=== PATIENT | female | born 1955 | race American Indian/Alaskan Native ===

== ENCOUNTER 2017-03-24 19:47 | Emergency (ER) | payer MEDICARE ==
[2017-03-24] MEDS ORDERED: TORADOL IM ONE (21:11)
[2017-03-24] MEDS ORDERED: BOOSTRIX IM ONE (21:11)
--- NOTE | 2017-03-24 21:30 | Emergency Department Report ---
HPI - General Chief Complaint: Extremity Injury, Lower Time Seen by Provider: 03/24/17 20:49 - HPI HPI: Patient is a 62-year-old female presents to ED complaining of right ankle pain 1 day. Patient states earlier tonight she was coming out of her door when the spring door hit the inside of her ankle. Patient states that throbbing type sensation in her ankle. She mentions she is unsure of her tetanus booster is up -to-date. She denies any medical history. She denies fevers/chills/vomiting/chest pain/shortness of breath/calf pain or any other issues. ED Past Medical Hx - Past Medical History Previous Medical History?: No Hx HIV: No - Surgical History Past Surgical History?: Yes Additional Surgical History: fusion to 4,5,6 vertebrae, - Social History Smoking Status: Never Smoker Substance Use Type: None - Medications Home Medications: Home Medications Medication Instructions Recorded Confirmed Last Taken Type Cetirizine HCl [ZyrTEC] 1 tab PO DAILY 09/12/15 09/23/15 09/22/15 09:00 History Cholecalciferol (Vitamin D3) 1 tab PO DAILY 09/12/15 09/23/15 09/16/15 09:00 History [Vitamin D3] Hair, Skin & Nails Caplet 1 tab PO DAILY 09/12/15 09/23/15 09/12/15 09:00 History Cephalexin [Keflex] 500 mg PO Q12HR #10 cap 03/24/17 Unknown Rx Ibuprofen [Motrin] 800 mg PO Q8HR PRN #30 tablet 03/24/17 Unknown Rx Neomycin David/Bacitrac Zn/Poly 1 applic TP TID #1 tube 03/24/17 Unknown Rx [Triple Antibiotic Ointment] ED Review of Systems ROS: Stated complaint: RT ANKLE LAC Other details as noted in HPI Constitutional: denies: chills, fever Eyes: denies: eye pain, eye discharge, vision change ENT: denies: ear pain, throat pain Respiratory: denies: cough, shortness of breath, wheezing Cardiovascular: denies: chest pain, palpitations Endocrine: no symptoms reported Gastrointestinal: denies: abdominal pain, nausea, diarrhea Genitourinary: denies: urgency, dysuria, discharge Musculoskeletal: denies: back pain, joint swelling, arthralgia Skin: denies: rash, lesions Neurological: denies: headache, weakness, paresthesias Psychiatric: denies: anxiety, depression Hematological/Lymphatic: denies: easy bleeding, easy bruising Physical Exam - Physical Exam Vital Signs: Vital Signs 03/24/17 20:17 Temperature 98.6 F Pulse Rate 77 Respiratory 20 Rate Blood Pressure 150/93 O2 Sat by Pulse 98 Oximetry Physical Exam: GENERAL: Alert and oriented x3, no apparent distress, Normal Gait, atraumatic. HEAD: Head is normocephalic and a-traumatic. EYES: Extra ocular muscles are intact. Pupils are equal, round, and reactive to light and accommodation. NECK: Supple. Non edematous, No carotid bruits. No lymphadenopathy or thyromegaly. LUNGS: Symetrical with respiration, No wheezing, no rales or crackles, CTAB. HEART: S1, S2 present, regular rate and rhythm without murmur, no rubs, no gallops. EXTREMITIES/MUSCULOSKELETAL: No cyanosis, clubbing, rash, lesions or edema. Full ROM bilaterally. pedal Pulses 2+ bilaterally. LE and UE 5+ strength bilaterally, mildly tenderness to palpation of the right ankle, none edema, two 0.5 cm superficial laceration on the medial aspect of the ankle. No active bleeding. Full range of motion of the right ankle. NEUROLOGIC: The patient is cooperative with no focal neurologic deficits. Cranial nerves II through XII are grossly intact. Normal speech. SKIN: Warm and dry, No lesions, No ulceration or induration present. ED Course Vital Signs 03/24/17 20:17 Temperature 98.6 F Pulse Rate 77 Respiratory 20 Rate Blood Pressure 150/93 O2 Sat by Pulse 98 Oximetry ED Medical Decision Making - Radiology Data Radiology results: report reviewed, image reviewed FINAL REPORT PROCEDURE: Right ankle series TECHNIQUE: Right ankle radiographs, AP, lateral, and oblique views. CPT 60781 HISTORY: RIGHT ANKLE PAIN COMPARISON: No prior studies are available for comparison. FINDINGS: No fracture or dislocation is identified. A small oval calcification projects inferior to the tip of the medial malleolus which appears well corticated suggesting an accessory ossicle. Ankle mortise and talar dome are intact. Bone density appears normal. No calcaneal spurs are seen. IMPRESSION: Negative exam.. Transcribed By: DFSelina Dictated By: NYLA PATEL MD Electronically Authenticated By: NYLA PATEL MD Signed Date/Time: 03/24/17 2155 - Medical Decision Making 62-year-old female presents with right ankle injury ED course: X-ray ordered. X-ray of the right ankle shows C above Patient received Toradol 60 IM for pain. Lacerations cleaned and dressed with triple antibiotic sterilely draped. Discussed acute wound care instructions the patient Discussed the patient to continue to apply antibiotic ointment. Vital signs are normal patient is in no acute distress. Patient has full range of motion man on the right ankle and foot Critical care attestation.: If time is entered above; I have spent that time in minutes in the direct care of this critically ill patient, excluding procedure time. ED Disposition Clinical Impression: Ankle abrasion without infection Qualifiers: Encounter type: initial encounter Laterality: right Qualified Code(s): S90.511A - Abrasion, right ankle, initial encounter Right ankle injury Qualifiers: Encounter type: initial encounter Qualified Code(s): S99.911A - Unspecified injury of right ankle, initial encounter Disposition: DISCHARGED TO HOME OR SELFCARE Is pt being admited?: No Does the pt Need Aspirin: No Condition: Stable Instructions: Acute Wound Care (ED), Arthralgia (ED), Ankle Exercises (GEN) Additional Instructions: Follow-up with primary care physician as referred for wound check in 3-5 days Taking medication as prescribed Final instructions as given change dressing every day, apply triple antibiotic Prescriptions: Cephalexin [Keflex] 500 mg PO Q12HR #10 cap Ibuprofen [Motrin] 800 mg PO Q8HR PRN #30 tablet PRN Reason: Pain Neomycin David/Bacitrac Zn/Poly [Triple Antibiotic Ointment] 1 applic TP TID #1 tube Referrals: PRIMARY CARE, [Primary Care Provider] - 3-5 Days [facility] [Outside] - 3-5 Days [facility] [Outside] - 3-5 Days [facility] [Outside] - 3-5 Days Forms: Work/School Release Form Time of Disposition: 22:06
[2017-03-24] MEDS ORDERED: TRIPLE ANTIBIOTIC TP ONE (21:43)
--- NOTE | 2017-03-24 21:59 | XRay Report ---
FINAL REPORT PROCEDURE: Right ankle series TECHNIQUE: Right ankle radiographs, AP, lateral, and oblique views. CPT 76616 HISTORY: RIGHT ANKLE PAIN COMPARISON: No prior studies are available for comparison. FINDINGS: No fracture or dislocation is identified. A small oval calcification projects inferior to the tip of the medial malleolus which appears well corticated suggesting an accessory ossicle. Ankle mortise and talar dome are intact. Bone density appears normal. No calcaneal spurs are seen. IMPRESSION: Negative exam..
[2017-03-24 22:21] VITALS: BP 142/82
== END 2017-03-24 22:20 | disposition home or self-care (01) ==
LOC: ED 19:47
DX: S90.511A Abrasion, right ankle, initial encounter (principal); X58.XXXA Exposure to other specified factors, initial encounter; Y93.89 Activity, other specified; Y99.8 Other external cause status; Y92.89 Other specified places as the place of occurrence of the external cause
CPT/HCPCS: 73610; 90471; 90715; 96372; 99283; J1885; A6250

== ENCOUNTER 2017-04-22 17:53 | Emergency (ER) | payer MEDICARE ==
[2017-04-22 18:01] VITALS: BP 150/92
[2017-04-22] MEDS ORDERED: DECADRON IM ONE (19:29)
[2017-04-22] MEDS ORDERED: TORADOL IM ONE (19:29)
--- NOTE | 2017-04-22 20:23 | XRay Report ---
FINAL REPORT EXAM: XR HIP 2-3V LT HISTORY: LEFT HIP pain TECHNIQUE: AP pelvis PRIORS: None. FINDINGS: No acute fractures are identified. The pubic symphysis and SI joints are intact. No evidence of hip fracture or dislocation. No bony lesions are identified. Calcification in the mid to upper pelvis likely reflects a calcified fibroid. IMPRESSION: no acute abnormalities seen
[2017-04-22] MEDS ORDERED: NORCO 5/325 PO ONE (20:40)
--- NOTE | 2017-04-22 20:45 | Emergency Department Report ---
Entered by DAIN STROUD, acting as scribe for JOHNSON SCHNEIDER PA. ED Lower Extremity HPI - General Chief Complaint: Extremity Problem,Nontraumatic Stated Complaint: LT HIP PAIN Time Seen by Provider: 04/22/17 19:23 Source: patient, family Mode of arrival: Ambulatory Limitations: No Limitations - History of Present Illness Initial Comments: 62 y/o female presents to the ED c/o left hip pain that began 2 weeks ago. Associated symptoms include hip pain but she denies fever and chills. Pain is described as 10/10 on a severity scale. Pain is achy. Denies injury. No alleviating factors despite taking Doans, Flexeril, and ibuprofen. Aggravated with movement. Patient is ambulatory. She denies any traumatic injury or any history of arthritis. NKDA. GREGORIO Complaint: hip injury Onset/Timin -: week(s) Injury: Hip: Left (pain worse to walk-in) Type of Injury: unknown Place: home Severity: severe Severity scale (0 -10): 10 Improves With: immobilization Worsens With: weight bearing, movement Context: walking Associated Symptoms: ambulatory Treatments Prior to Arrival: other (Flexeril, NOADS) - Related Data Home Medications Medication Instructions Recorded Confirmed Last Taken Cetirizine HCl [ZyrTEC] 1 tab PO DAILY 09/12/15 09/23/15 09/22/15 09:00 Cholecalciferol (Vitamin D3) 1 tab PO DAILY 09/12/15 09/23/15 09/16/15 09:00 [Vitamin D3] Hair, Skin & Nails Caplet 1 tab PO DAILY 09/12/15 09/23/15 09/12/15 09:00 Previous Rx's Medication Instructions Recorded Last Taken Type Cephalexin [Keflex] 500 mg PO Q12HR #10 cap 03/24/17 Unknown Rx Ibuprofen [Motrin] 800 mg PO Q8HR PRN #30 tablet 03/24/17 Unknown Rx Neomycin David/Bacitrac Zn/Poly 1 applic TP TID #1 tube 03/24/17 Unknown Rx [Triple Antibiotic Ointment] traMADol [Ultram] 50 mg PO Q6HR PRN #20 tablet 04/22/17 Unknown Rx Allergies Allergy/AdvReac Type Severity Reaction Status Date / Time No Known Allergies Allergy Verified 11/20/15 11:12 ED Review of Systems Comment: All other systems reviewed and negative Constitutional: denies: chills, fever Respiratory: no symptoms reported Cardiovascular: denies: chest pain, palpitations, edema, syncope Gastrointestinal: denies: nausea, vomiting Musculoskeletal: arthralgia. denies: back pain, joint swelling, myalgia Skin: denies: rash Neurological: denies: headache, weakness, numbness, paresthesias, confusion, abnormal gait, vertigo ED Past Medical Hx - Past Medical History Previous Medical History?: Yes Hx HIV: No Additional medical history: Chronic back pain with history of fusion - Surgical History Past Surgical History?: Yes Additional Surgical History: fusion to 4,5,6 vertebrae, bunion, TL, nose - Social History Smoking Status: Never Smoker Substance Use Type: None - Medications Home Medications: Home Medications Medication Instructions Recorded Confirmed Last Taken Type Cetirizine HCl [ZyrTEC] 1 tab PO DAILY 09/12/15 09/23/15 09/22/15 09:00 History Cholecalciferol (Vitamin D3) 1 tab PO DAILY 09/12/15 09/23/15 09/16/15 09:00 History [Vitamin D3] Hair, Skin & Nails Caplet 1 tab PO DAILY 09/12/15 09/23/15 09/12/15 09:00 History Cephalexin [Keflex] 500 mg PO Q12HR #10 cap 03/24/17 Unknown Rx Ibuprofen [Motrin] 800 mg PO Q8HR PRN #30 tablet 03/24/17 Unknown Rx Neomycin David/Bacitrac Zn/Poly 1 applic TP TID #1 tube 03/24/17 Unknown Rx [Triple Antibiotic Ointment] traMADol [Ultram] 50 mg PO Q6HR PRN #20 tablet 04/22/17 Unknown Rx ED Physical Exam - General Limitations: No Limitations General appearance: alert, in no apparent distress - Head Head exam: Present: atraumatic, normocephalic, normal inspection - Eye Eye exam: Present: normal appearance, PERRL, EOMI. Absent: nystagmus, periorbital swelling, periorbital tenderness Pupils: Present: normal accommodation - ENT ENT exam: Present: normal exam, mucous membranes dry, mucous membranes moist, TM 's normal bilaterally, normal external ear exam - Neck Neck exam: Present: normal inspection, full ROM. Absent: tenderness, lymphadenopathy - Respiratory Respiratory exam: Present: normal lung sounds bilaterally. Absent: respiratory distress, chest wall tenderness - Cardiovascular Cardiovascular Exam: Present: regular rate, normal rhythm, normal heart sounds - GI/Abdominal GI/Abdominal exam: Present: soft, normal bowel sounds. Absent: distended, tenderness, guarding, rebound - Extremities Exam Extremities exam: Present: normal inspection, full ROM, normal capillary refill , other (full abduction and adduction with pain). Absent: tenderness, pedal edema, joint swelling, calf tenderness - Expanded Lower Extremity Exam Left Hip exam: Present: normal inspection, full ROM, pelvic stability. Absent: tenderness, swelling, abrasion, laceration, ecchymosis, deformity, crepidus, dislocation, erythema, external rotation, internal rotation, shortening Upper Leg exam: Present: normal inspection, full ROM. Absent: tenderness, swelling, abrasion, laceration, ecchymosis, deformity, crepidus, dislocation, erythema Knee exam: Present: normal inspection, full ROM, full knee extension. Absent: tenderness, swelling, abrasion, laceration, ecchymosis, deformity, crepidus, dislocation, erythema, effusion, pain w/ pronation/supination, posterior draw sign, pain/laxity with valgus, pain/laxity with varus Lower Leg exam: Present: normal inspection, full ROM. Absent: tenderness, swelling, abrasion, laceration, ecchymosis, deformity, crepidus, dislocation, erythema, palpable cord, Yeni's sign Ankle exam: Present: normal inspection, full ROM. Absent: tenderness, swelling , abrasion, laceration, ecchymosis, deformity, crepidus, dislocation, erythema, anterior draw sign Foot/Toe exam: Present: normal inspection, full ROM. Absent: tenderness, swelling, abrasion, laceration, ecchymosis, deformity, crepidus, dislocation, erythema, amputation, puncture wound, foreign body, calcaneal tenderness, tenderness at base of 5th metatarsal, nail avulsion, subungual hematoma Neuro vascular tendon exam: Present: no vascular compromise, pulse deficit. Absent: abnormal cap refill, motor deficit, sensory deficit, tendon deficit, extremity cold to touch, pallor, abnormal 2-point discrimination, decreased fine /light touch, foot drop, peroneal nerve deficit, significant pain with passive ROM of distal joint Gait: Positive: observed and limited by pain - Back Exam Back exam: Present: normal inspection, full ROM. Absent: tenderness, CVA tenderness (R), CVA tenderness (L), muscle spasm, paraspinal tenderness, vertebral tenderness, rash noted - Neurological Exam Neurological exam: Present: alert, oriented X3, normal gait, reflexes normal. Absent: motor sensory deficit - Psychiatric Psychiatric exam: Present: normal affect, normal mood - Skin Skin exam: Present: warm, dry, intact, normal color. Absent: rash ED Course Vital Signs 04/22/17 17:56 Temperature 97.9 F Pulse Rate 92 H Blood Pressure 150/92 O2 Sat by Pulse 100 Oximetry Vital Signs 04/22/17 04/22/17 17:56 20:12 Temperature 97.9 F Pulse Rate 92 H Respiratory 18 Rate Blood Pressure 150/92 O2 Sat by Pulse 100 Oximetry - Reevaluation(s) Reevaluation #1: 04/22/17 20:13 Patient received Decadron 10 mg IM and Toradol 60 mg IM and emergency room for pain. Reevaluation #2: 04/22/17 20:39 Patient pain was not completely relieved with Toradol and Decadron so she was given [place] 5/325 2 tablets prior to discharge. ED Lower Extremity MDM - Radiology Data Radiology results: report reviewed X-ray of left hip revealed no acute bony abnormality. No joint effusion noted. No soft tissue swelling noted - Medical Decision Making ED course: She did complain and off left hip pain without any injury that started 2 weeks ago. X-ray of her left hip revealed no bony abnormalities or joint effusion, soft tissue swelling and this was relayed to patient. I discussed with her that she will need to follow-up with orthopedic doctor for possible MRI of her hip. She was given Decadron 10 mg IM, Toradol 60 mg IM which did not relieve her pain completely therefore she was given [place] 5/325 2 tablets in emergency room prior to discharge. I explained diagnosis and treatment plan the patient and she voiced understanding. Patient discharged home with her family in stable condition with prescription for Ultram. ED Disposition Clinical Impression: Arthralgia of left hip Disposition: - TO HOME OR SELFCARE Is pt being admited?: No Does the pt Need Aspirin: No Condition: Stable Instructions: Arthralgia (ED) Additional Instructions: Please rest for 72 hours F/U with orthopedic doctor as instructed Take Ultram as prescribed for pain. Prescriptions: traMADol [Ultram] 50 mg PO Q6HR PRN #20 tablet PRN Reason: Pain Referrals: EMANI FELIX MD [Staff Physician] - 04/27/17 Forms: Work/School Release Form(ED), Accompanied Note This documentation as recorded by the [employer] cornell ELIZABETH,accurately reflects the service I personally performed and the decisions made by ,JOHNSON SCHNEIDER PA.
== END 2017-04-22 20:50 | disposition home or self-care (01) ==
LOC: ED 17:53
DX: M25.552 Pain in left hip (principal)
CPT/HCPCS: 73502; 96372; 99283; J1100; J1885

== ENCOUNTER 2017-08-12 01:45 | Emergency (ER) | payer MEDICARE ==
[2017-08-12 03:48] LABS: Basophils % (Auto) 0.3 % (0.0-1.8); Eosinophils % (Auto) 1.4 % (0.0-4.3); Hematocrit 36.5 % (30.3-42.9); Hemoglobin 12.4 gm/dl (10.1-14.3); Mean Corpuscular HGB Conc 34 % (30-34); Mean Corpuscular Hemoglobin 31 pg (28-32); Mean Corpuscular Volume 92 fl (79-97); Platelet Count 202 K/mm3 (140-440); Red Blood Count 3.96 M/mm3 (3.65-5.03); Red Cell Distribution Width 14.2 % (13.2-15.2); White Blood Count 7.2 K/mm3 (4.5-11.0)
[2017-08-12 04:11] LABS: Alanine Aminotransferase 45 units/L (7-56); Albumin 4.2 g/dL (3.9-5); Albumin/Globulin Ratio 1.6 %; Alkaline Phosphatase 106 units/L (35-129); Anion Gap 18 mmol/L; BUN/Creatinine Ratio 17; Blood Urea Nitrogen 15 mg/dL (7-17); Calcium 9.7 mg/dL (8.4-10.2); Carbon Dioxide 26 mmol/L (22-30); Chloride 102.8 mmol/L (98-107); Glucose 98 mg/dL (65-100); Lipase 18 units/L (13-60); Potassium 4.3 mmol/L (3.6-5.0); Sodium 142 mmol/L (137-145); Total Protein 6.8 g/dL (6.3-8.2)
[2017-08-12 06:20] VITALS: BP 143/98
[2017-08-12 07:19] LABS: Bacteria,Urine 1+ /HPF (Negative); Bilirubin,Urine NEG (Negative); Blood,Urine NEG (Negative); Ketones,Urine NEG (Negative); Leukocyte Esterase,Urine TR (Negative); Mucus,Urine FEW /HPF; Nitrite,Urine NEG (Negative); Protein,Urine <15 mg/dL mg/dL (Negative); Urobilinogen,Urine < 2.0 mg/dL (<2.0)
[2017-08-12 08:08] LABS: RBC,Urine < 1.0 /HPF (0.0-6.0)
== END 2017-08-12 06:15 | disposition left against medical advice (07) ==
LOC: ED 01:45
DX: R10.9 Unspecified abdominal pain (principal); Z53.21 Procedure and treatment not carried out due to patient leaving prior to being seen by health care provider
CPT/HCPCS: 36415; 80053; 81001; 83690; 85025

== ENCOUNTER 2019-05-04 10:49 | Emergency (ER) | payer MEDICARE ==
[2019-05-04 10:59] VITALS: BP 149/79
[2019-05-04] MEDS ORDERED: IBUPROFEN PO ONE (13:13)
--- NOTE | 2019-05-04 13:41 | Emergency Department Report ---
ED General Adult HPI - General Chief complaint: Extremity Injury, Upper Stated complaint: COLLAR BONE/R WRIST PAIN Time Seen by Provider: 05/04/19 12:56 Source: patient Mode of arrival: Ambulatory Limitations: No Limitations - History of Present Illness Initial comments: 64-year-old female comes in for not her right collarbone and right wrist does not feel right. Collarbone not has been there for one month right wrist knot has been there for 2 months. Patient's been taking Aleve. Patient reports she had discussed it with the primary care provider and was referred to orthopedist for her ganglionic cyst but she has not followed up secondary to her pain. Patient reports an knot on her collarbone is sore denies any trauma. Onset/Timin -: month(s) Location: upper extremity (right wrist) Radiation: non-radiation Severity scale (0 -10): 7 Quality: aching Consistency: constant Improves with: none Worsens with: none Associated Symptoms: denies other symptoms Treatments Prior to Arrival: NSAID (aleve) - Related Data Home Medications Medication Instructions Recorded Confirmed Last Taken Cetirizine HCl [ZyrTEC 10mg cap] 1 tab PO DAILY 09/12/15 08/15/17 09/22/15 09:00 Hair, Skin & Nails Caplet 1 tab PO DAILY 09/12/15 08/15/17 09/12/15 09:00 Aspirin/Acetaminophen/Caffeine 1 each PO PRN PRN 08/15/17 08/15/17 Unknown [Barb's Ex-Str Powder Packet] Previous Rx's Medication Instructions Recorded Last Taken Type Ibuprofen [Motrin 800 MG tab] 800 mg PO Q8HR PRN #30 tablet 03/24/17 Unknown Rx levoFLOXacin [Levaquin TAB] 500 mg PO QDAY #10 tablet 08/20/17 Unknown Rx oxyCODONE /ACETAMINOPHEN [Percocet 1 tab PO Q6H PRN #10 tablet 08/20/17 Unknown Rx 5/325 mg] metroNIDAZOLE [Metronidazole] 500 mg PO TID #30 tablet 08/21/17 Unknown Rx Diclofenac Sodium 50 mg PO TID PRN #30 tablet. 05/04/19 Unknown Rx Allergies Allergy/AdvReac Type Severity Reaction Status Date / Time No Known Allergies Allergy Verified 05/04/19 10:54 ED Review of Systems ROS: Stated complaint: COLLAR BONE/R WRIST PAIN Other details as noted in HPI Comment: All other systems reviewed and negative ED Past Medical Hx - Past Medical History Hx Congestive Heart Failure: No Hx Diabetes: No Hx Asthma: No Hx HIV: No Additional medical history: Chronic back pain with history of fusion - Surgical History Additional Surgical History: fusion to 4,5,6 vertebrae, bunion, TL, nose - Social History Smoking Status: Never Smoker Substance Use Type: None - Medications Home Medications: Home Medications Medication Instructions Recorded Confirmed Last Taken Type Cetirizine HCl [ZyrTEC 10mg cap] 1 tab PO DAILY 09/12/15 08/15/17 09/22/15 09:00 History Hair, Skin & Nails Caplet 1 tab PO DAILY 09/12/15 08/15/17 09/12/15 09:00 History Ibuprofen [Motrin 800 MG tab] 800 mg PO Q8HR PRN #30 tablet 03/24/17 08/15/17 Unknown Rx Aspirin/Acetaminophen/Caffeine 1 each PO PRN PRN 08/15/17 08/15/17 Unknown History [[employer] Ex-Str Powder Packet] levoFLOXacin [Levaquin TAB] 500 mg PO QDAY #10 tablet 08/20/17 Unknown Rx oxyCODONE /ACETAMINOPHEN [Percocet 1 tab PO Q6H PRN #10 tablet 08/20/17 Unknown Rx 5/325 mg] metroNIDAZOLE [Metronidazole] 500 mg PO TID #30 tablet 08/21/17 Unknown Rx Diclofenac Sodium 50 mg PO TID PRN #30 tablet. 05/04/19 Unknown Rx ED Physical Exam - General Limitations: No Limitations General appearance: alert, in no apparent distress - Head Head exam: Present: atraumatic, normocephalic - Eye Eye exam: Present: normal appearance - ENT ENT exam: Present: mucous membranes moist - Respiratory Respiratory exam: Present: other (tenderness and swelling at the sternocleidomastoid insertion of the collarbone.) - Cardiovascular Cardiovascular Exam: Present: regular rate, normal rhythm. Absent: systolic murmur, diastolic murmur, rubs, gallop - Expanded Upper Extremity Exam Right Shoulder Exam: Present: normal inspection, full ROM Upper Arm exam: Present: normal inspection, full ROM Forearm Wrist exam: Present: normal inspection, full ROM Hand Wrist exam: Present: full ROM, tenderness, other (mobile cysts underneath the skin of the right wrist tender to palpate) - Neurological Exam Neurological exam: Present: alert, oriented X3 - Psychiatric Psychiatric exam: Present: normal affect, normal mood - Skin Skin exam: Present: warm, dry, intact, normal color. Absent: rash ED Course Vital Signs 05/04/19 10:58 Temperature 98.0 F Pulse Rate 101 H Respiratory 18 Rate Blood Pressure 149/79 O2 Sat by Pulse 100 Oximetry Critical care attestation.: If time is entered above; I have spent that time in minutes in the direct care of this critically ill patient, excluding procedure time. ED Disposition Clinical Impression: Ganglion cyst of dorsum of right wrist Disposition: ELOPED Is pt being admited?: No Does the pt Need Aspirin: No Condition: Stable Prescriptions: Diclofenac Sodium 50 mg PO TID PRN #30 tablet.dr WHITE Reason: Pain , Severe (7-10) Referrals: ROSA ACOSTA MD [Primary Care Provider] - 3-5 Days EMANI FELIX MD [Staff Physician] - 3-5 Days
== END 2019-05-04 14:00 | disposition left against medical advice (07) ==
LOC: ED 10:49
DX: M67.431 Ganglion, right wrist (principal); R22.1 Localized swelling, mass and lump, neck; G89.29 Other chronic pain; Z98.1 Arthrodesis status; Z79.899 Other long term (current) drug therapy
CPT/HCPCS: 99281

== ENCOUNTER 2019-12-04 23:22 | Emergency (ER) | payer MEDICARE ==
[2019-12-05] MEDS ORDERED: ASPIRIN 325 MG TAB PO ONE (00:15)
[2019-12-05] MEDS ORDERED: FAMOTIDINE 20 MG TAB PO ONE (00:43)
[2019-12-05] MEDS ORDERED: SUCRALFATE 1 GM/10 ML ORAL LIQD PO ONE (00:43)
[2019-12-05] MEDS ORDERED: ACETAMINOPHEN 325 MG TAB PO ONE (00:43)
[2019-12-05] MEDS ORDERED: KETOROLAC 30 MG/1 ML INJ IM ONE (00:43)
--- NOTE | 2019-12-05 00:44 | Emergency Department Report ---
ED General Adult HPI - General Chief complaint: Chest Pain Stated complaint: LT SIDE AND LOWER CHEST PAIN Time Seen by Provider: 12/05/19 00:20 Source: patient, RN notes reviewed, old records reviewed Mode of arrival: Ambulatory Limitations: No Limitations - History of Present Illness Initial comments: This is a 64-year-old female. Her primary care doctor is Dr. Gauthier. During the entire history and physical examination I am painter mirror and escorted by nurse Kelsey Bolivar. Past medical history includes diverticulitis, chronic back pain, and she prese nts to the ER today with a complaint of nontraumatic left lateral thoracic pain. This has been present for 2 weeks. It starts on her left posterior thorax, and radiates around to her front. She denies DVT and pulmonary embolism risk factors. She denies headache, neck pain, central chest pain, exertional shortness of breath, vomiting, abdominal pain, diaphoresis, irritative and obstructive urinary symptoms, leg pain and leg swelling. Her pain is throbbing and aching, intermittent, increases with palpation, range of motion, and it decreases with rest. She is right-hand dominant, and denies heavy lifting and strenuous physical activities. Her pain was improved with appropriate pain medication in the emergency room, including ketorolac. -: Gradual, week(s) Location: back Radiation: other Quality: other Consistency: other Improves with: other Worsens with: other Associated Symptoms: other - Related Data Home Medications Medication Instructions Recorded Confirmed Last Taken Cetirizine HCl [ZyrTEC 10mg cap] 1 tab PO DAILY 09/12/15 08/15/17 09/22/15 09:00 Hair, Skin & Nails Caplet 1 tab PO DAILY 09/12/15 08/15/17 09/12/15 09:00 Aspirin/Acetaminophen/Caffeine 1 each PO PRN PRN 08/15/17 08/15/17 Unknown [Barb's Ex-Str Powder Packet] Previous Rx's Medication Instructions Recorded Last Taken Type Ibuprofen [Motrin 800 MG tab] 800 mg PO Q8HR PRN #30 tablet 03/24/17 Unknown Rx levoFLOXacin [Levaquin TAB] 500 mg PO QDAY #10 tablet 08/20/17 Unknown Rx oxyCODONE /ACETAMINOPHEN [Percocet 1 tab PO Q6H PRN #10 tablet 08/20/17 Unknown Rx 5/325 mg] metroNIDAZOLE [Metronidazole] 500 mg PO TID #30 tablet 08/21/17 Unknown Rx Diclofenac Sodium 50 mg PO TID PRN #30 tablet. 05/04/19 Unknown Rx Acetaminophen [Non-Aspirin Extra 500 mg PO Q6HR PRN #30 tablet 12/05/19 Unknown Rx Strength] Ibuprofen [Motrin] 600 mg PO Q8H PRN #30 tablet 12/05/19 Unknown Rx Allergies Allergy/AdvReac Type Severity Reaction Status Date / Time No Known Allergies Allergy Verified 05/04/19 10:54 ED Review of Systems ROS: Stated complaint: LT SIDE AND LOWER CHEST PAIN Other details as noted in HPI Constitutional: denies: fever Eyes: denies: eye discharge ENT: denies: congestion Respiratory: denies: wheezing Cardiovascular: denies: syncope Gastrointestinal: denies: abdominal pain Genitourinary: denies: dysuria Musculoskeletal: back pain Skin: denies: lesions Neurological: denies: weakness Hematological/Lymphatic: denies: easy bleeding ED Past Medical Hx - Past Medical History Previous Medical History?: Yes Hx Congestive Heart Failure: No Hx Diabetes: No Hx Asthma: No Hx HIV: No Additional medical history: Chronic back pain with history of fusion. diverticulitis - Surgical History Additional Surgical History: fusion to 4,5,6 vertebrae, bunion, TL, nose - Social History Smoking Status: Never Smoker - Medications Home Medications: Home Medications Medication Instructions Recorded Confirmed Last Taken Type Cetirizine HCl [ZyrTEC 10mg cap] 1 tab PO DAILY 09/12/15 08/15/17 09/22/15 09:00 History Hair, Skin & Nails Caplet 1 tab PO DAILY 09/12/15 08/15/17 09/12/15 09:00 History Ibuprofen [Motrin 800 MG tab] 800 mg PO Q8HR PRN #30 tablet 03/24/17 08/15/17 Unknown Rx Aspirin/Acetaminophen/Caffeine 1 each PO PRN PRN 08/15/17 08/15/17 Unknown History [Barb's Ex-Str Powder Packet] levoFLOXacin [Levaquin TAB] 500 mg PO QDAY #10 tablet 08/20/17 Unknown Rx oxyCODONE /ACETAMINOPHEN [Percocet 1 tab PO Q6H PRN #10 tablet 08/20/17 Unknown Rx 5/325 mg] metroNIDAZOLE [Metronidazole] 500 mg PO TID #30 tablet 08/21/17 Unknown Rx Diclofenac Sodium 50 mg PO TID PRN #30 tablet. 05/04/19 Unknown Rx Acetaminophen [Non-Aspirin Extra 500 mg PO Q6HR PRN #30 tablet 12/05/19 Unknown Rx Strength] Ibuprofen [Motrin] 600 mg PO Q8H PRN #30 tablet 12/05/19 Unknown Rx ED Physical Exam - General Limitations: No Limitations General appearance: alert, anxious - Head Head exam: Present: atraumatic, normocephalic - Eye Eye exam: Present: normal appearance, EOMI. Absent: nystagmus - ENT ENT exam: Present: normal exam, normal orophraynx, mucous membranes moist, normal external ear exam - Neck Neck exam: Present: normal inspection, full ROM. Absent: tenderness, meningismus - Respiratory Respiratory exam: Present: normal lung sounds bilaterally, chest wall tenderness, other (There is no breast redness, tenderness, streaking or pus. Chaperoned by nurse Kelsey Bolivar. No skin lesions or vesicles noted). Absent: respiratory distress, wheezes, rales, rhonchi, stridor - Cardiovascular Cardiovascular Exam: Present: regular rate, normal rhythm, normal heart sounds. Absent: bradycardia, tachycardia, irregular rhythm, systolic murmur, diastolic murmur, rubs, gallop - GI/Abdominal GI/Abdominal exam: Present: soft. Absent: distended, tenderness, guarding, rebound, rigid, pulsatile mass - Extremities Exam Extremities exam: Present: normal inspection, full ROM, other (2+ pulses noted in the bilateral upper and lower extremities. There is no palpable cord. negative Homans sign. Muscular compartments are soft. The pelvis is stable.). Absent: pedal edema, calf tenderness - Back Exam Back exam: Present: normal inspection, full ROM, paraspinal tenderness. Absent: tenderness, CVA tenderness (R), CVA tenderness (L), vertebral tenderness - Neurological Exam Neurological exam: Present: alert, oriented X3, normal gait, other (There is no facial droop. The tongue is midline. Extraocular movements are intact bilaterally. There is 5 out of 5 strength in bilateral upper and lower extremities. Sensation is intact to light touch bilateral upper and lower extremities. There is no past-pointing. There is a normal gait.). Absent: motor sensory deficit - Psychiatric Psychiatric exam: Present: anxious - Skin Skin exam: Present: warm, dry, intact, normal color. Absent: rash ED Course Vital Signs 12/04/19 12/05/19 23:33 01:26 Temperature 98.5 F Pulse Rate 93 H 84 Respiratory 18 14 Rate Blood Pressure 159/97 Blood Pressure 181/90 [Left] O2 Sat by Pulse 98 98 Oximetry ED Medical Decision Making - Lab Data Result diagrams: 12/05/19 00:30 12/05/19 00:30 Vital Signs 12/05/19 01:26 Pulse Rate 84 Respiratory 14 Rate Blood Pressure 181/90 [Left] O2 Sat by Pulse 98 Oximetry Lab Results 12/05/19 12/05/19 12/05/19 Range/Units 00:30 00:30 00:48 WBC 4.4 L (4.5-11.0) K/mm3 RBC 4.40 (3.65-5.03) M/mm3 Hgb 13.9 (10.1-14.3) gm/dl Hct 41.4 (30.3-42.9) % MCV 94 (79-97) fl MCH 32 (28-32) pg MCHC 34 (30-34) % RDW 15.4 H (13.2-15.2) % Plt Count 220 (140-440) K/mm3 Lymph % (Auto) 43.2 H (13.4-35.0) % [place] % (Auto) 7.4 H (0.0-7.3) % Eos % (Auto) 3.0 (0.0-4.3) % Baso % (Auto) 0.7 (0.0-1.8) % Lymph # 1.9 (1.2-5.4) K/mm3 [place] # 0.3 (0.0-0.8) K/mm3 Eos # 0.1 (0.0-0.4) K/mm3 Baso # 0.0 (0.0-0.1) K/mm3 Seg Neutrophils % 45.7 (40.0-70.0) % Seg Neutrophils # 2.0 (1.8-7.7) K/mm3 PT 11.9 L (12.2-14.9) Sec. INR 0.87 (0.87-1.13) D-Dimer 135.00 (0-234) ng/mlDDU Sodium 143 (137-145) mmol/L Potassium 4.7 (3.6-5.0) mmol/L Chloride 104.0 (98-107) mmol/L Carbon Dioxide 25 (22-30) mmol/L Anion Gap 19 mmol/L BUN 13 (7-17) mg/dL Creatinine 0.8 (0.7-1.2) mg/dL Estimated GFR > 60 ml/min BUN/Creatinine Ratio 16 % Glucose 112 H (65-100) mg/dL Calcium 10.0 (8.4-10.2) mg/dL Magnesium (1.7-2.3) mg/dL Total Creatine Kinase (30-135) units/L Troponin T < 0.010 (0.00-0.029) ng/mL Lipase 18 (13-60) units/L Urine Color (Yellow) Urine Turbidity (Clear) Urine pH (5.0-7.0) Ur Specific [place] (1.003-1.030) Urine Protein (Negative) mg/dL Urine Glucose (UA) (Negative) mg/dL Urine Ketones (Negative) mg/dL Urine Blood (Negative) Urine Nitrite (Negative) Urine Bilirubin (Negative) Urine Urobilinogen (<2.0) mg/dL Ur Leukocyte Esterase (Negative) Urine WBC (Auto) (0.0-6.0) /HPF Urine RBC (Auto) (0.0-6.0) /HPF U Epithel Cells (Auto) (0-13.0) /HPF Urine Bacteria (Auto) (Negative) /HPF Urine Mucus /HPF 12/05/19 12/05/19 Range/Units 00:48 01:26 WBC (4.5-11.0) K/mm3 RBC (3.65-5.03) M/mm3 Hgb (10.1-14.3) gm/dl Hct (30.3-42.9) % MCV (79-97) fl MCH (28-32) pg MCHC (30-34) % RDW (13.2-15.2) % Plt Count (140-440) K/mm3 Lymph % (Auto) (13.4-35.0) % [place] % (Auto) (0.0-7.3) % Eos % (Auto) (0.0-4.3) % Baso % (Auto) (0.0-1.8) % Lymph # (1.2-5.4) K/mm3 [place] # (0.0-0.8) K/mm3 Eos # (0.0-0.4) K/mm3 Baso # (0.0-0.1) K/mm3 Seg Neutrophils % (40.0-70.0) % Seg Neutrophils # (1.8-7.7) K/mm3 PT (12.2-14.9) Sec. INR (0.87-1.13) D-Dimer (0-234) ng/mlDDU Sodium (137-145) mmol/L Potassium (3.6-5.0) mmol/L Chloride (98-107) mmol/L Carbon Dioxide (22-30) mmol/L Anion Gap mmol/L BUN (7-17) mg/dL Creatinine (0.7-1.2) mg/dL Estimated GFR ml/min BUN/Creatinine Ratio % Glucose (65-100) mg/dL Calcium (8.4-10.2) mg/dL Magnesium 2.00 (1.7-2.3) mg/dL Total Creatine Kinase 278 H (30-135) units/L Troponin T (0.00-0.029) ng/mL Lipase (13-60) units/L Urine Color Yellow (Yellow) Urine Turbidity Slightly-cloudy (Clear) Urine pH 6.0 (5.0-7.0) Ur Specific [place] 1.020 (1.003-1.030) Urine Protein <15 mg/dl (Negative) mg/dL Urine Glucose (UA) Neg (Negative) mg/dL Urine Ketones Neg (Negative) mg/dL Urine Blood Neg (Negative) Urine Nitrite Neg (Negative) Urine Bilirubin Neg (Negative) Urine Urobilinogen < 2.0 (<2.0) mg/dL Ur Leukocyte Esterase Tr (Negative) Urine WBC (Auto) 2.0 (0.0-6.0) /HPF Urine RBC (Auto) 2.0 (0.0-6.0) /HPF U Epithel Cells (Auto) 4.0 (0-13.0) /HPF Urine Bacteria (Auto) 1+ (Negative) /HPF Urine Mucus Few /HPF - EKG Data -: EKG Interpreted by [facility] EKG shows normal: sinus rhythm Rate: normal - EKG Data 12/05/19 02:46 The EKG shows a sinus rhythm, 76 bpm, normal axis, QTC 424 ms, borderline high left ventricular voltage, minimal motion artifact. The EKG is not consistent with STEMI - Radiology Data Radiology results: pending, report reviewed, image reviewed Print Report Referring Physician: ALLEGRA TRIPP Patient Name: SINDHU JOHN Date of : 1955 Sex: Female Report Date: 2019-12-05 Report Status: Finalized Findings [facility] [address] [place] [address] XRay Report Signed Patient: SINDHU JOHN MR#: [id number] : 1955 Acct:[id number] Age/Sex: 64 / F ADM Date: 12/04/19 Loc: ED Attending Dr: Ordering Physician: ALLEGRA TRIPP NP Date of Service: 12/05/19 Procedure(s): XR chest routine 2V Accession Number(s): [id number] cc: ALLEGRA TRIPP NP Fluoro Time In Minutes: CHEST 2 VIEWS INDICATION / CLINICAL INFORMATION: Chest Pain. COMPARISON: None available. FINDINGS: SUPPORT DEVICES: None. HEART / MEDIASTINUM: Mild cardiomegaly is stable. LUNGS / PLEURA: No significant pulmonary or pleural abnormality. No pneumothorax. ADDITIONAL FINDINGS: No significant additional findings. IMPRESSION: 1. No acute abnormality of the chest. Signer Name: Nino Bentley MD Signed: 12/05/2019 12:58 AM Workstation Name: [id number] Transcribed By: [place] Dictated By: Nino Bentley MD Electronically Authenticated By: Nino Bentley MD Signed Date/Time: 12/05/19 0058 - Medical Decision Making Differential diagnosis, including but not limited to: Costochondritis, pneumonia, urinary tract infection, pulmonary embolism Assessment and plan: Pleasant 64-year-old female who is not tachycardic, tachypneic or hypoxic, who is low risk by Wells criteria, with no DVT or pulmonary embolism risk factors, with nontraumatic left-sided reproducible thoracic and flank pain, negative d-dimer, unremarkable x-ray the chest, unremarkable EKG, unremarkable urinalysis, and negative troponin. Given 2 weeks of symptoms, patient is very unlikely to experience a major adverse cardiac event, and as per the [employer] clinical policy, myocardial infarction may be ruled out with 1 set of enzymes if symptoms present for greater than 8 hours. There are no cutaneous skin lesions consistent with shingles or zoster, and she felt markedly improved after nonnarcotic pain medication. This patient is suitable to follow-up with an outpatient primary care doctor for her reproducible thoracic and chest wall pain. Critical care attestation.: If time is entered above; I have spent that time in minutes in the direct care of this critically ill patient, excluding procedure time. ED Disposition Clinical Impression: Chest wall pain Disposition: DC-01 TO HOME OR SELFCARE Is pt being admited?: No Does the pt Need Aspirin: No Condition: Stable Instructions: Chest Pain (ED) Additional Instructions: Rest, avoid heavy lifting, and avoid strenuous physical activities. Take the pain medications as needed and directed. We recommend follow-up with a primary care doctor within the next 5 to 7 days. Please return to the emergency room right away with new, worsened or different symptoms, or symptoms not present on the initial emergency room evaluation. Referrals: ROSA ACOSTA MD [Primary Care Provider] - 3-5 Days
[2019-12-05 00:50] LABS: Basophils % (Auto) 0.7 % (0.0-1.8); Eosinophils # (Auto) 0.1 K/mm3 (0.0-0.4); Hematocrit 41.4 % (30.3-42.9); Hemoglobin 13.9 gm/dl (10.1-14.3); Lymphocytes # (Auto) 1.9 K/mm3 (1.2-5.4); Lymphocytes % (Auto) 43.2 % (13.4-35.0); Mean Corpuscular HGB Conc 34 % (30-34); Mean Corpuscular Volume 94 fl (79-97); Monocytes # (Auto) 0.3 K/mm3 (0.0-0.8); Monocytes % (Auto) 7.4 % (0.0-7.3); Platelet Count 220 K/mm3 (140-440); Red Cell Distribution Width 15.4 % (13.2-15.2)
--- NOTE | 2019-12-05 01:02 | XRay Report ---
CHEST 2 VIEWS INDICATION / CLINICAL INFORMATION: Chest Pain. COMPARISON: None available. FINDINGS: SUPPORT DEVICES: None. HEART / MEDIASTINUM: Mild cardiomegaly is stable. LUNGS / PLEURA: No significant pulmonary or pleural abnormality. No pneumothorax. ADDITIONAL FINDINGS: No significant additional findings. IMPRESSION: 1. No acute abnormality of the chest. Signer Name: Nino Bentley MD Signed: 12/05/2019 12:58 AM Workstation Name: [id number]
[2019-12-05 01:12] LABS: BUN/Creatinine Ratio 16; Blood Urea Nitrogen 13 mg/dL (7-17); Hemolysis Index 30
[2019-12-05 01:32] LABS: INR 0.87 (0.87-1.13)
[2019-12-05 01:41] LABS: Bacteria,Urine 1+ /HPF (Negative); Bilirubin,Urine NEG (Negative); Blood,Urine NEG (Negative); Color,Urine Yellow (Yellow); Mucus,Urine FEW /HPF; Protein,Urine <15 mg/dL mg/dL (Negative); Urobilinogen,Urine < 2.0 mg/dL (<2.0)
[2019-12-05 02:49] VITALS: BP 159/97
== END 2019-12-05 03:00 | disposition home or self-care (01) ==
LOC: ED 23:22
DX: R07.89 Other chest pain (principal); Z79.899 Other long term (current) drug therapy
CPT/HCPCS: 36415; 71046; 80048; 81001; 82550; 83690; 83735; 84484; 85025; 85379; 85610; 93005; 93010; 96372; 99284; J1885

== ENCOUNTER 2021-06-03 21:27 | Emergency (ER) | payer MEDICARE | END 2021-06-03 21:32 | disposition home or self-care (01) | LOC: ED 21:27 | DX: R05 Cough (principal); Z53.21 Procedure and treatment not carried out due to patient leaving prior to being seen by health care provider ==